=== PATIENT | female | born 1945 | race Caucasian/White ===

== ENCOUNTER 2024-08-27 17:50 | Inpatient (IN) | payer OTHER, SELFPAY ==
[2024-08-27] VITALS (11 sets, daily range): BP systolic 103–175; BP diastolic 44–67; BMI 26.4
--- NOTE | 2024-08-27 14:49 | ED.GENMED ---
History of Present Illness
General
Chief Complaint: Breathing Problem
Time Seen by Provider: 08/27/24 14:14
History of Present Illness
History of Present Illness:
78-year-old female with history of hypertension, hyperlipidemia, history of CVA on Plavix presenting to the emergency department for chest pressure and shortness of breath. Patient reports for the past several weeks she has been having some
pressure in her chest and then this morning felt very short of breath. Has been coughing with production of phlegm. Denies known pulmonary history, however does note that eye doctor in the past told her that she may have COPD. Denies fever.
Denies abdominal pain. Denies any radiation of her pain. No shortness of breath with deep inspiration. Denies any lower extremity swelling. Denies additional acute medical complaints
Phy Exam
Physical Exam
Physical Exam:
General: Well-appearing, no clinical signs of dehydration, nontoxic and in no acute distress
HEENT: protecting airway
Neck: appears supple
CV: Normal heart rate, regular rhythm
Resp: No accessory muscle use, no increased work of breathing, lungs clear to auscultation bilaterally
Abd: Soft and non-distended, no tenderness to palpation
Extremities: No deformities, no swelling
Neuro: alert, no focal neurologic deficit
: deferred
Rectal: deferred
Psych: Normal affect
Skin: Intact
Scores
Heart Failure Risk
Heart Failure Risk Score: Not Applicable
Course
Orders/Labs/Results
Orders:
Orders
08/27/24 12:27
ECG [Electrocardiogram (*1)] Urgent
Reason for Study: Chest Pain
08/27/24 12:28
EKG- Treatment ONCE
08/27/24 14:36
Ipratropium/Albuterol Sulfate [Duoneb] 3 ml INH R NOW ONE
CR Chest - 2 Views Urgent
Comment:
Reason For Exam: SOB
08/27/24 14:44
Electrocardiogram (*1) Urgent
Reason for Study: Chest Pain
08/27/24 Dinner
Clear Liquid
At Your Request: Full Participation
Does patient need a safe tray?: No
08/27/24 15:16
Complete Blood Count/With Diff Urgent
Comprehensive Metabolic Panel Urgent
Ferritin Urgent
Comment: ADD ON
Folate Urgent
Comment: ADD ON
Iron Urgent
Comment: ADD ON
Reticulocyte Count Urgent
Comment: ADD ON
Total Iron Binding Urgent
Comment: ADD ON
Troponin I Urgent
Vitamin B12 Urgent
Comment: ADD ON
08/27/24 16:10
* Blood Bank Products Urgent
Blood Bank Products: *Packed RBC Leuko(PRBC's)
Quantity: 1
Transfuse Today: Yes
Reason: Anemia
08/27/24 16:35
Type And Crossmatch [Type+Screen] Urgent
08/27/24 17:00
ABO2 Urgent
BBK Wristband Number:
Associate notified that ABO2 has been ordered: [id number]
Date: 08/27/24
Time: 16:56
Diabetes Nurse ID: [id number]
08/27/24 17:27
Admit/Transfer Patient As Directed
Co-Sign Provider:
Level of Care: Inpatient admission
Assign to:: Medical/Surgical
Physician / Group: hospitalist
Diagnosis: symptomatic anemia
Reason for Hospitalization: blood transfusion--GI work up
Expected length of stay greater than two midnights?: Yes
ELOS- Estimated Length of Stay in days: 4
I certify the patient meets the requirements for IP care: Yes
PRN Pain Medication Management As Directed
May give lesser potent ordered pain med per pt: Yes
preference::
Protocol:: Medication orders for pain may be administered in a
manner that supports deferring to patient preference
when the pt is:
- Requesting an ordered lesser potent pain medication.
Least to most potent pain medications are defined
as: acetaminophen < NSAID < tramadol < opioids
(morphine, oxycodone, hydromorphone).
- Requesting a lesser dose of the same medication IF
ORDERED.
- Requesting a less intrusive route of administration
if both routes are prescribed by the provider (PO <
IV).
08/27/24 17:29
Code Status As Directed
Resuscitation Status: Full Code
08/27/24 17:45
Add On- LAB Routine
Tests Added?: ferritin, iron, TIBC, %sat, retic count, B12, folate
08/27/24 20:07
0.9% Sodium Chloride 1000 ml [Nss] 1,000 ml IV 100 mls/hr
Metoprolol Xl [Toprol Xl] 50 mg PO QPM
Pantoprazole [Protonix IV] 40 mg IV BID
08/27/24 20:07
GASTROINTESTINAL CONSULT Routine
Consulting Provider: Altagracia Viramontes
Was physician already notified: Yes
Activity As Directed
Activity Level: Out of Bed-Early Mobility
INT (Intravenous Needle Therapy) As Directed
Comment: Place 2 IV catheters of the largest bore possible until stable
Pneumatic Compression Sleeves As Directed
Type: Knee high
Vital Signs As Directed
Frequency: Per unit guidelines
DX Deep Vein Thrombosis Video Routine
08/27/24 22:00
Trazodone [Desyrel] 200 mg PO HS
08/28/24 06:00
Complete Blood Count/No Diff IN AM
Comprehensive Metabolic Panel IN AM
PTT IN AM
Prothrombin Time IN AM
08/28/24 08:00
Amlodipine [Norvasc] 10 mg PO DAILY
08/28/24 12:00
Tramadol HCl [Ultram] 100 mg PO BID@1200,1800
Abnormal Lab Results
08/27/24 08/27/24
15:16 16:35
RBC 2.57 L 10^6/uL
(4.20-5.40)
Hgb 6.5 L* g/dL
(12.0-16.0)
Hct 21.8 L %
(37.0-47.0)
MCH 25.3 L pg
(27.0-31.0)
MCHC 29.8 L g/dL
(33.0-37.0)
Absolute Neuts (auto) 8.5 H 10^3/uL
(1.4-6.5)
Neutrophils % 79.1 H %
(42.2-75.2)
Lymphocytes % 13.0 L %
(20.5-51.1)
Retic Count 4.8 H %
(0.4-2.8)
Chloride 110 H mmol/L
(98-107)
BUN 20 H mg/dl
(7-17)
Glucose 107 H mg/dl
(70-99)
Iron 21 L ug/dl
(37-170)
% Saturation 5 L %
(20-50)
Ferritin 6.7 L ng/ml
(11.1-264.0)
Total Protein 6.1 L g/dl
(6.3-8.2)
Albumin 3.3 L g/dl
(3.5-5.0)
Folate > 20.0 H ng/ml
(2.76-20)
Crossmatch IS Only See Detail
08/27/24 15:16
08/27/24 15:16
Vital Signs
Initial and Last Documented VS:
Initial Vital Signs
Temp Pulse Resp BP Pulse Ox
98.3 F 76 20 139/53 97
08/27/24 12:21 08/27/24 12:21 08/27/24 12:21 08/27/24 12:21 08/27/24 12:21
Last Documented Vital Signs
Temp Pulse Resp BP Pulse Ox
98.3 F 62 18 154/64 96
08/27/24 23:01 08/27/24 23:01 08/27/24 23:01 08/27/24 23:01 08/27/24 23:01
MDM/Problems Addressed
MDM/Problems Addressed:
78-year-old female with history of hypertension and hyperlipidemia presenting to the emergency department for shortness of breath. Vital signs on arrival are normal.
On exam patient is resting comfortably, no acute respiratory distress. Benign cardiac and pulmonary exam. No increased work of breathing, no focal abnormal lung sounds. Suspect component of bronchitis. Very scant expiratory wheeze. Possible
component of COPD. EKG obtained, nonischemic. No signs of volume overload, without concern for CHF. Will plan for laboratory analysis, chest x-ray imaging will trial DuoNeb to assess improvement for symptoms
16:10 - Patient does report some improvement of her breathing after treatment. Continue to suspect possible bronchitis, however patient's hemoglobin is 6.5. No prior for comparison. Does note that she has had transfusions in the past, however
believes that her baseline is around 9. Does note in the past several months she has noticed blood in her stool, none presently. On rectal exam, brown stool, faintly heme positive. Feel patient warrants admission for symptomatic anemia and
possible GI bleed
16:40 -incident with patient. Admitting physician and I went to evaluate patient. Patient refused to talk to him because she 'could not understand him 'and had expressed dissatisfaction having a 'foreign doctor '. Did confront patient and
explained that in her hospitalization, she will absolutely have to encounter providers of multiple ethnicities patient explained understanding. Additional admitting hospitalist aware of situation, will have a different provider evaluate patient for
admission
*Pulse Oximetry
SaO2: 97
Oxygen Mode of Delivery: Room air
Patient hypoxic: no
*EKG
Interpreted by ED Provider?: Yes
EKG Intrepretation Date: 08/27/24
EKG Intrepretation Time: 14:53
Interpretation: normal
Comparison EKG: no comparison EKG present
Heart Rate: 71
Rate: normal
Rhythm: sinus
[place]: normal axis
Interval: normal interval
QRS Pattern: normal QRS
Ischemia: no ischemia
*Critical Care Note
Total Time (30-74mins, 75-104mins- exclusive of procedures): Not Applicable
ED Attending Note
-
Portions of this chart may have been created with voice recognition software.� Occasional wrong word or��sound alike� substitutions may have occurred due to the inherent limitations of voice recognition software.
Discharge Plan
Departure
Patient Disposition: Admit
Date of Disposition: 08/27/24
Time of Disposition: 16:15
Presentation/result/management discussed w/ accepting MD/DO: Hospitalist
Patient with high blood pressure during this ER visit?: No
Condition: Fair
Discharge Problem:
Symptomatic anemia, Breath shortness
Interventions
Interventions:
*Risk Screen - Suicide Last Done: 08/27/24 20:42
*General Assessment Last Done: 08/27/24 12:21
*Neglect/Abuse Screening Last Done: 08/27/24 14:54
*ED- Fall Risk Assessment Last Done: 08/27/24 14:54
*ED COVID-19 Vaccine History Last Done: 08/27/24 20:42
*Nursing Disposition Last Done: 08/27/24 20:07
ED- Cardiac Assessment Last Done: 08/27/24 14:54
ED- Pulmonary Assessment Last Done: 08/27/24 14:54
Discharge Date and Time
Discharge Date/Time: 08/27/24 20:07
[2024-08-27] MEDS: DUONEB 3 ML INH (15:22)
[2024-08-27 15:35] LABS: Hematocrit 21.8 % (37.0-47.0); Hemoglobin 6.5 g/dL (12.0-16.0); Mean Corp Hgb Conc. 29.8 g/dL (33.0-37.0); Mean Corpuscular Volume 84.8 fL (81.0-99.0); Nucleated Red Blood Cells % 0 %; Platelet Count 368 10^3/uL (130-400); Red Cell Dist. Width 14.4 % (11.5-14.5)
[2024-08-27 15:43] LABS: ALT (SGPT) 14 U/L (0-35); AST (SGOT) 17 U/L (14-36); Albumin 3.3 g/dl (3.5-5.0); Alkaline Phosphatase 98 U/L (38-126); Blood Urea Nitrogen 20 mg/dl (7-17); Calcium 8.9 mg/dl (8.4-10.2); Carbon Dioxide 26 mmol/L (22-30); Chloride 110 mmol/L (98-107); Estimated Creatinine Clearance 54 ml/min; Glucose 107 mg/dl (70-99); Potassium 4.0 mmol/L (3.5-5.1); Sodium 138 mmol/L (135-145); Total Protein 6.1 g/dl (6.3-8.2); eGFR > 60.00
[2024-08-27 15:54] LABS: Troponin I < 0.012 ng/ml
--- NOTE | 2024-08-27 16:40 | EDRN ---
into see the patient. Patient rudely asked the to remove his mask and interrupted him while he was explaining why he was wearing it. removed his mask and introduced himself to the patient and attempted to obtain PMH and
why patient was here today. Patient interrupted and stated 'What are all the doctors foreigners? Do none of them speak [place]? I don't want a foreign doctor taking care of me. I can't understand them.'
--- NOTE | 2024-08-27 17:33 | HPS.HSE ---
Family Physician
-
Family Physician: Jah Castillo
Chief Complaint
-
Short of breath
History of Present Illness
Patient is a 78-year-old female with a past medical history significant for essential hypertension, hypothyroidism, hyperlipidemia among other medical issues who stated that she has been short of breath. This has been ongoing. She denies any chest
pains. She states that she did receive a nebulizer treatment and this has helped a little bit. She stated that they jeff some blood in the emergency department and she was told her hemoglobin was low at 6.8 and that they also found 'blood in the
stool'. Patient says that she has been having black stools but has been on iron therapy. She stopped 6 weeks ago due to constipation. She also states that she is having some nausea and vomiting but no hematemesis. Patient is being admitted.
Medical History
Past Medical History
Past Medical History: Reports Other
Additional Past Medical History:
Essential hypertension
Hyperlipidemia
Hypothyroidism
Gout
Ophthalmologic stroke
Mesenteric stents
Past Surgical History: Reports Other
Additional Past Surgical History:
Ruptured appendix
'18 abdominal surgeries'
Spinal surgery for lipoma removal
Broken left hip status post ORIF
Broken right jaimes with rods
Broken right hip with total hip replacement
Social History
Tobacco: Smoker (3 cigarettes/day)
Alcohol: None
Drug: None
Family History
Family History: Other (Mother at age 48, father at age 72 from complications of a CVA, brother recently with heart and kidney issues)
Allergies / Home Medications
Allergies reflects when Allergies were last updated in [facility].
Home Medications with original date entered in [facility]
Allergy/Medication List:
Allergies
Allergy/AdvReac Type Severity Reaction Status Date / Time
oxybutynin Allergy Unknown Verified 08/27/24 12:21
Penicillins Allergy Unknown Verified 08/27/24 12:21
Home Medications
acetaminophen 500 mg tablet (Tylenol Extra Strength) 500 mg PO DAILYPRN PRN mild pain 08/27/24
allopurinol 300 mg tablet 300 mg PO MOWEFR 08/27/24
amlodipine 10 mg tablet 10 mg PO DAILY 08/27/24
aspirin 81 mg tablet,delayed release 81 mg PO DAILY 08/27/24
atorvastatin 40 mg tablet 40 mg PO QPM 08/27/24
biotin 10,000 mcg capsule 10,000 mcg PO DAILY 08/27/24
cholecalciferol (vitamin D3) 50 mcg (2,000 unit) tablet 50 mcg PO DAILY 08/27/24
clopidogrel 75 mg tablet 75 mg PO DAILY 08/27/24
fluticasone propionate 50 mcg/actuation nasal spray,suspension 1 spray intranasal BID 08/27/24
ipratropium bromide 42 mcg (0.06 %) nasal spray 1 spray intranasal BID 08/27/24
levothyroxine 100 mcg tablet 100 mcg PO DAILY 08/27/24
magnesium oxide 500 mg PO QPM 08/27/24
metoprolol succinate 50 mg tablet,extended release 24 hr 50 mg PO QPM 08/27/24
ramipril 10 mg capsule 10 mg PO DAILY 08/27/24
therapeutic multivitamin 1 tab PO DAILY 08/27/24
tramadol 100 mg tablet 100 mg PO BID@1200,1800 08/27/24
trazodone 100 mg tablet 200 mg PO HS 08/27/24
vitamin B complex 1 tab PO QPM 08/27/24
Review of Systems
-
History Source: Patient
A 12 point ROS was completed and negative except as noted: Yes
Constitutional: Denies Fever or Chills
EENT: Reports No Symptoms
Respiratory: Reports Trouble Breathing
Cardiac: Reports Chest Pain (Pressure)
Abdomen/GI: Reports Nausea, Vomiting, Constipated and Black Stools; Denies Abdominal Pain or Diarrhea
: Reports No Symptoms
Musculoskeletal: Reports No Symptoms
Skin: Reports No Symptoms
Neurological: Reports Dizzy (Lightheaded)
Endocrine: Reports No Symptoms
Hematologic/Lymphatic: Reports No Symptoms
Psych: Reports No Symptoms
Physical Exam
Vital Signs
Vital Signs
Temp Pulse Resp BP Pulse Ox
98.3 F 76 20 139/53 96
08/27/24 12:21 08/27/24 12:21 08/27/24 12:21 08/27/24 12:21 08/27/24 14:54
Physical Exam
General: Well Developed, Well Nourished, No Apparent Distress, Obese and Other (Pale appearing)
HEENT: NormoCephalic, Anicteric and Atraumatic; No [place] Conjunctivae (Pale)
Respiratory: Clear; No Wheezes, Rales, Rhonchi or Crackles
Cardiac: S1/S2 and Regular Rhythm; No Bradycardia or Tachycardia
GI: Soft, Non Tender (Mildly tender left lower quadrant without any guarding or rebound), Non Distended, Normal Bowel Sounds and No Hepatosplenomegaly
Musculoskeletal: No Clubbing, No Cyanosis and No Edema
Skin: Warm and Dry
Neuro: Awake and Alert
Psych: Calm
Laboratory Results
-
08/27/24 15:16
08/27/24 15:16
Laboratory Results
Total Bilirubin 0.4 mg/dl (0.2-1.3) 08/27/24 15:16
AST 17 U/L (14-36) 08/27/24 15:16
ALT 14 U/L (0-35) 08/27/24 15:16
Alkaline Phosphatase 98 U/L (38-126) 08/27/24 15:16
Troponin I < 0.012 ng/ml 08/27/24 15:16
Impression/Plan
-
Patient is a 78-year-old female
Symptomatic anemia--etiologies include upper GI from peptic ulcer disease, duodenal ulcer disease due to her aspirin and Plavix use-- diverticular bleeding less likely as these are black stools --patient's hemoglobin is 6.5 with no old ones to
compare as she has never been here before--ADMIT--consult GI--hold aspirin and clopidogrel--clear liquids with IV fluids--patient has been typed and crossed and will be transfused packed red blood cells--follow hemoglobin--antiemetics--consideration
for imaging of the abdomen with left lower quadrant discomfort--will check iron studies (added on to ED labs)
Essential hypertension--continue amlodipine and metoprolol with holding parameters
Hypothyroidism--hold Synthroid for now
Ophthalmologic stroke--hold aspirin and Plavix
Hyperlipidemia--hold atorvastatin
Allergies--continue fluticasone and ipratropium nasal sprays
Constipation--patient states that she suffers from this although I do not see any bowel regimen other than magnesium oxide on her medication profile--will hold off on starting currently as GI may want to do an endoscopy and/or colonoscopy--should
likely have bowel regimen at home
Gout--hold allopurinol
Insomnia--patient takes trazodone 200 mg at bedtime for sleep--we will continue that with holding parameters
DVT prophylaxis--sequential teds
CODE STATUS--full code
[2024-08-27 18:23] LABS: Reticulocyte Count 4.8 % (0.4-2.8)
--- NOTE | 2024-08-27 18:28 | EDRN ---
Patient is receiving PRBC. Reviewed signs and symptoms of a transfusion reaction. Patient verbalized understanding.
[2024-08-27 18:38] LABS: Iron 21 ug/dl (37-170)
--- NOTE | 2024-08-27 18:40 | EDRN ---
Patient tolerating PRBC. Asymptomatic of a transfusion reaction.
[2024-08-27 18:48] LABS: Total Iron Binding Capacity 393 ug/dl (265-497)
[2024-08-27 19:15] LABS: Ferritin 6.7 ng/ml (11.1-264.0)
[2024-08-27 19:46] LABS: Folate > 20.0 ng/ml (2.76-20); Vitamin B12 508 pg/ml (239-931)
[2024-08-27] MEDS: NSS (PRESERVATIVE FREE) 10 ML IV (20:17)
[2024-08-27] MEDS: NSS 1000 IV (20:17)
[2024-08-27] MEDS: PROTONIX IV 40 MG IV (20:18)
[2024-08-27] MEDS: TOPROL XL 50 MG PO (20:20)
[2024-08-27] MEDS: DESYREL 200 MG PO (20:20)
--- NOTE | 2024-08-27 20:30 | PTCARENOTE ---
Pt. admitted from E.D., AAO x 3, one unit of PRBC's infusing, vs stable, call arenas within reach.
[2024-08-27] MEDS: ULTRAM 100 MG PO (21:25)
[2024-08-28 06:00] VITALS: BMI 25.5
[2024-08-28 07:00] VITALS: BP 156/53
[2024-08-28] MEDS: NSS 1000 IV (07:21)
[2024-08-28] MEDS: NSS (PRESERVATIVE FREE) 10 ML IV ×2 (07:22→22:00)
[2024-08-28] MEDS: NORVASC 10 MG PO (07:22)
[2024-08-28] MEDS: PROTONIX IV 40 MG IV ×2 (07:23→22:00)
[2024-08-28 07:31] LABS: Hematocrit 23.6 % (37.0-47.0); Hemoglobin 7.2 g/dL (12.0-16.0); Mean Corp Hgb Conc. 30.5 g/dL (33.0-37.0); Mean Corpuscular Volume 85.2 fL (81.0-99.0); Platelet Count 323 10^3/uL (130-400); Red Cell Dist. Width 14.1 % (11.5-14.5)
[2024-08-28 07:33] LABS: INR 1.04; PT 13.9 Sec (11.4-14.6)
[2024-08-28 07:34] LABS: APTT 28.8 Sec (23.4-35.0)
[2024-08-28 07:36] LABS: ALT (SGPT) 12 U/L (0-35); AST (SGOT) 16 U/L (14-36); Albumin 2.8 g/dl (3.5-5.0); Alkaline Phosphatase 84 U/L (38-126); Blood Urea Nitrogen 15 mg/dl (7-17); Calcium 8.2 mg/dl (8.4-10.2); Carbon Dioxide 23 mmol/L (22-30); Chloride 114 mmol/L (98-107); Estimated Creatinine Clearance 54 ml/min; Glucose 99 mg/dl (70-99); Potassium 3.7 mmol/L (3.5-5.1); Sodium 139 mmol/L (135-145); Total Protein 5.3 g/dl (6.3-8.2); eGFR > 60.00
--- NOTE | 2024-08-28 08:07 | W.PN.HOSP.TC ---
Addendum entered and electronically signed by Kirti Hebert MD 08/28/24 14:26:
I saw and evaluated the patient independently. I reviewed the resident�s note and agree with findings and plan as documented by Dr. Donovan.
GENERAL: well developed, well nourished, pale appearing female in no apparent distress
HEENT: NC/AT
HEART: regular rate and rhythm, +S1, +S2
LUNGS : clear to auscultation bilaterally but loose sounding cough
ABDOM: soft, nontender, nondistended, + bowel sounds
EXT: no cyanosis, clubbing, or edema
NEUROLOGIC: grossly intact
Symptomatic anemia--etiologies include upper GI from peptic ulcer disease, duodenal ulcer disease, gastritis due to her aspirin and Plavix use-- diverticular bleeding less likely--patient's hemoglobin is 6.5 with no old ones to compare as she has
never been here before-apprec GI--hold aspirin and clopidogrel (need washout)--clear liquids with stopping IV fluids--s/p 1 unit pRBC with bump to 7.2, will transfuse another unit--follow hemoglobin--antiemetics--iron studies consistent with iron
deficiency
Essential hypertension--continue amlodipine and metoprolol with holding parameters
Hypothyroidism--restart Synthroid
Ophthalmologic stroke--hold aspirin and Plavix
Hyperlipidemia--restart atorvastatin
Allergies--continue fluticasone and ipratropium nasal sprays
Constipation--patient states that she suffers from this although I do not see any bowel regimen other than magnesium oxide on her medication profile--will hold off on starting currently as GI may want to do an endoscopy and/or colonoscopy--should
likely have bowel regimen at home
Gout--restart allopurinol
chronic pain--takes tramadol 100 mg BID--will increase dose
Insomnia--patient takes trazodone 200 mg at bedtime for sleep--we will continue that with holding parameters
DVT prophylaxis--sequential teds
CODE STATUS--full code
Original Note:
Today's Communication/Plan
-
Ordered another unit of pRBCs, will continue to monitor CBC
Assessment / Plan
Assessment / Plan
Assessment
This is a 78 y/o female with pmhx of hypertension, hyperlipidemia, history of CVA on Plavix who presented to the ED on 08/27/2024 with shortness of breath that began that same morning, alongside nausea and vomiting who was found to have a hemoglobin
of 6.5 in the ED.
Plan
Symptomatic Anemia
-Initial ED values: Hemoglobin 6.5 (L), Hematocrit 21.8 (L), Iron 21 (L), TIBC 393 (N), % Sat 5 (L), Ferritin 6.7 (L), MCV 84.8 (N)
-H&H status post transfusion 1 unit pRBCs : Hemoglobin 7.2 (L), Hematocrit 23.6 (L)
-DD: Upper GI bleed (Patient on aspirin and Plavix at home), Diverticular bleed (Less likely due to blackened stools)
-Consulted GI.
-Ordered 1 unit pRBCs for transfusion today, which will bring total to 2 units.
-HOLD Aspirin and Plavix
-Continue clear fluids diet and IV fluid
-Will continue to monitor CBC
Essential Hypertension
-Continue home meds (Amlodipine and metoprolol) with hold parameters
Hypothyroidism
-Restarted home medication (Synthroid)
Opthalmologic Stroke
-HOLD Aspirin and Plavix
Hyperlipidemia
-Restarted home medication (atorvastatin)
Allergic Rhinitis
-Continue Fluticasone and Opratropium ?Nasal Sprays
Constipation
-Continue home medication (Magnesium Oxide)
-Will consider bowel regime after GI sees her in the event they wish to do an endoscopy and/or colonoscopy
-Patient should be discharged on a bowel regimen
Gout
-Restarted home medication (allopurinol)
Chronic Back Pain
-INCREASED Tramadol to 100mg TID
Insomnia
-Continue home medication (trazodone) with hold parameters
Anticipated Discharge: 24 - 48 hours
Subjective/Interval History
-
Date of Service: August 28, 2024
Patient was doing well when I arrived. She had some questions about her medications and why some of them were not given to her this morning. I spoke with her about the possibility of her anemia being related to a GI bleed. She reports resolution in
her shortness of breath, chest pain and nausea. She does state she is coughing with production clear, slightly greenish phlegm which she says happens when she doesn�t take fluticasone and ipratropium. She denies being diagnosed with allergies,
COPD, Asthma. She does report chronic back pain as well, and states that the tramadol dosage she takes at home is not adequately controlling her pain.
Objective Data
-
Labs:
Laboratory Results
08/28/24
07:02
WBC 8.0
Hgb 7.2 L
Hct 23.6 L
Plt Count 323
PT 13.9
INR 1.04
APTT 28.8
Sodium 139
Potassium 3.7
Chloride 114 H
Carbon Dioxide 23
BUN 15
Creatinine 0.8
Glucose 99
Calcium 8.2 L
Total Bilirubin 0.4
AST 16
ALT 12
Alkaline Phosphatase 84
Vital Signs:
Vital Signs
Temp Pulse Resp BP Pulse Ox
98.3 F 62 18 154/64 96
08/27/24 23:01 08/27/24 23:01 08/27/24 23:01 08/27/24 23:01 08/27/24 23:01
I&O
08/27/24 08/28/24 08/29/24
06:59 06:59 06:59
Intake Total 250 / 250
Balance 250 / 250
Review of Systems
-
History Source: Patient
Constitutional: Reports No Symptoms
Respiratory: Reports Cough; Denies Trouble Breathing or Wheezing
Cardiac: Reports No Symptoms
Abdomen/GI: Denies Abdominal Pain, Nausea, Vomiting or Diarrhea
Musculoskeletal: Reports Muscle Pain (Back pain, chronic following accident many years ago)
Physical Exam
-
General: Well Developed, Well Nourished, No Apparent Distress and Comfortable
HEENT: Normocephalic and Atraumatic
Respiratory: Clear to Auscultation
Cardiac: Regular Rhythm and S1/S2
Skin: Warm and Dry
Neuro: Awake, Alert and Oriented
Psych: Calm
--- NOTE | 2024-08-28 09:35 | CON.GI ---
Consultation
-
Date/Time Consultation Requested: 08/27/24
Date/Time Consultation Performed: 08/28/24
Requesting Provider: Dr. Hebert
Performing Provider: Dr. Viramontes
Reason for Consultation: Melena, LINDA
Medical History
Chief Complaint / HPI
Chief Complaint: Symptomatic anemia, melena
History of Present Illness:
Marine Mayfield is a 78 y.o. female with past medical history of HTN, HLD, hypothyroidism, Mesenteric ischemia s/p PCI, '18 abdominal surgeries,' chronic iron deficiency anemia, hx opthalmologic stroke admitted with complaints of shortness of breath,
found to have a hemoglobin of 6.5, BUN 20/Cr. 0.8. She is on aspirin and plavix, states she has been on them for years, was never told to stop them. She has never been to [facility] before, typically goes to [facility], but decided to
come here, 'because its closer.' She reports history of LINDA, receiving iron and blood transfusions as an outpatient. Prior EGD/Colonoscopies at [facility] reportedly negative, denies prior VCE. Reports being transferred to [place] in 2022 during a
3 month long hospitalization, treated for mesenteric ischemia with multiple stents. She reports being scheduled for an EGD with Dr. Kim but cancelled it after falling last month at home and losing alot of blood, she never rescheduled it. She
reports being on iron therapy as an outpatient and noticing black stools. She has struggled with constipation due to the iron pills, so stopped taking it about 6 weeks ago. She admits to constipation at baseline, just worse with iron
supplementation. No prior labs in our system to compare.�Denies family history of GI malignancy. Denies regular use of NSAIDs.
Hgb 6.5 --> 7.2 s/p 1 unit of PRBC. Recieving 2nd unit of PRBC now.
Past Medical History
Past Medical History: Other (HTN, HLD, hypothyroidism, Mesenteric ischemia s/p PCI, Iron Deficiency Anemia, Opthalmologic stroke )
Past Surgical History: Other (Ruptured appendix '18 abdominal surgeries,' Spinal surgery for lipoma removal, Broken left hip status post ORIF, Broken right jaimes with rods, Broken right hip with total hip replacement)
Social History
Tobacco: Smoker
Alcohol: None
Drug: None
Family History
Family History: Reviewed & Not Pertinent
Allergies / Home Medications
Allergy/AdvReac Type Severity Reaction Status Date / Time
oxybutynin Allergy Unknown Verified 08/27/24 12:21
Penicillins Allergy Unknown Verified 08/27/24 12:21
�Medication �Instructions �Recorded
acetaminophen 500 mg tablet 500 mg PO DAILYPRN PRN mild pain 08/27/24
(Tylenol Extra Strength)
allopurinol 300 mg tablet 300 mg PO MOWEFR Gout 08/27/24
amlodipine 10 mg tablet 10 mg PO DAILY Blood Pressure 08/27/24
aspirin 81 mg tablet,delayed 81 mg PO DAILY Blood Clot 08/27/24
release Prevention/Tx
atorvastatin 40 mg tablet 40 mg PO QPM High Cholesterol 08/27/24
biotin 10,000 mcg capsule 10,000 mcg PO DAILY Supplement 08/27/24
cholecalciferol (vitamin D3) 50 50 mcg PO DAILY Supplement 08/27/24
mcg (2,000 unit) tablet
clopidogrel 75 mg tablet 75 mg PO DAILY Blood Clot 08/27/24
Prevention/Tx
fluticasone propionate 50 1 spray intranasal BID Allergies 08/27/24
mcg/actuation nasal
spray,suspension
ipratropium bromide 42 mcg (0.06 1 spray intranasal BID Congestion 08/27/24
%) nasal spray
levothyroxine 100 mcg tablet 100 mcg PO DAILY Thyroid 08/27/24
magnesium oxide 500 mg PO QPM Electrolyte Repletion 08/27/24
metoprolol succinate 50 mg 50 mg PO QPM Heart 08/27/24
tablet,extended release 24 hr Disease/Condition
ramipril 10 mg capsule 10 mg PO DAILY Blood Pressure 08/27/24
therapeutic multivitamin 1 tab PO DAILY Supplement 08/27/24
tramadol 100 mg tablet 100 mg PO BID@1200,1800 Pain 08/27/24
trazodone 100 mg tablet 200 mg PO HS Mental Health/Anxiety 08/27/24
vitamin B complex 1 tab PO QPM Supplement 08/27/24
Review of Systems
-
All other systems: A 12 pt ROS was Negative except as stated above in HPI
Vital Signs
Temp Pulse Resp BP Pulse Ox
98.3 F 64 18 156/53 95
08/28/24 07:00 08/28/24 07:00 08/28/24 07:00 08/28/24 07:00 08/28/24 08:00
Physical Exam
Exam
GENERAL: In no acute distress, appears comfortable
ABDOMEN: +BS; soft, non-tender and non-distended; no rebound or guarding
Results
WBC 8.0 10^3/uL (4.8-10.8) 08/28/24 07:02
Hgb 7.2 g/dL (12.0-16.0) L 08/28/24 07:02
Hct 23.6 % (37.0-47.0) L 08/28/24 07:02
MCV 85.2 fL (81.0-99.0) 08/28/24 07:02
Plt Count 323 10^3/uL (130-400) 08/28/24 07:02
Absolute Neuts (auto) 8.5 10^3/uL (1.4-6.5) H 08/27/24 15:16
PT 13.9 Sec (11.4-14.6) 08/28/24 07:02
INR 1.04 08/28/24 07:02
APTT 28.8 Sec (23.4-35.0) 08/28/24 07:02
Sodium 139 mmol/L (135-145) 08/28/24 07:02
Potassium 3.7 mmol/L (3.5-5.1) 08/28/24 07:02
Chloride 114 mmol/L (98-107) H 08/28/24 07:02
Carbon Dioxide 23 mmol/L (22-30) 08/28/24 07:02
BUN 15 mg/dl (7-17) 08/28/24 07:02
Creatinine 0.8 mg/dL (0.6-1.0) 08/28/24 07:02
Calcium 8.2 mg/dl (8.4-10.2) L 08/28/24 07:02
Total Bilirubin 0.4 mg/dl (0.2-1.3) 08/28/24 07:02
AST 16 U/L (14-36) 08/28/24 07:02
ALT 12 U/L (0-35) 08/28/24 07:02
Alkaline Phosphatase 84 U/L (38-126) 08/28/24 07:02
Diagnostic Image Results:
Prior GI Procedures:
EGD:
Colonoscopy:
Assessment / Plan
-
78 y.o. female with past medical history of HTN, HLD, hypothyroidism, Mesenteric ischemia s/p PCI, '18 abdominal surgeries,' chronic iron deficiency anemia, hx opthalmologic stroke admitted with symptomatic anemia and black stool, hemoglobin 6.5.
#Acute blood loss anemia
#Melena�
#Constipation
#History of Mesenteric Ischemia s/p PCI
Unfortunately, patient is new to the [facility] and we have no prior records to review her endoscopic exams for workup of similar presentations with iron deficiency anemia as well as her trend of hemoglobin to know how large of a drop this is
from her baseline. She reports history of chronic LINDA requiring outpatient iron and blood transfusions, reports having an EGD scheduled for last month but cancelling it after she fell and suffered a leg injury. She is on DAPT, plavix held on
admission, last dose was 08/27. Otherwise, she has no complaints and is hemodynamically stable without signs of active/unstable GI bleeding.
Concern for UGIB vs. small bowel vs. right-sided colonic source. Suspect she may have obscure GI bleeding due to her reports of prior EGD/Colonoscopy without identifiable source of anemia, but no small bowel evlaution performed. She received 1 unit
of blood thus far, receiving 2nd unit now. Iron panel c/w LINDA.
A/P:
-hold plavix, okay to continue with ASA
-2 large peripheral gauge IVs
-Trend H&H, transfuse for Hgb <7, getting additional unit of PRBC now
-Will attempt to obtain records from [facility] tomorrow to review. Depending on prior workup/findings/ baseline hemoglobin etc, will determine if she can be discharged home if hemoglobin stable without evidence of active bleeding w/ follow-up w/
her outpatient GI doctor vs. inpatient endoscopic evaluation following plavix washout. Earliest would be able to perform EGD would be thu/.
-okay for clears, depending on hemoglobin trend, can discuss advancing diet
Discussed plan with Dr. Hebert.
Data Reviewed
-
Old Records: Requested
-
-
Thank you for consultation and allowing me to participate in the patient's care. Please call the transplant surgeon GI physician during the after hours with any questions or concerns.
[2024-08-28] MEDS: ULTRAM 100 MG PO ×3 (10:25→21:59)
--- NOTE | 2024-08-28 10:56 | PTCARENOTE ---
' For this pt, I gave her the 100 mg of Tramadol. She stated that, 'This tramadol makes her legs hurt for one hour,' then starts to work. She had asked me to message you which I am. I told her that you both should be rounding soon. ' Brandon texted
this to the resident and Dr. Hebert.
[2024-08-28] MEDS: SYNTHROID PO (13:08)
[2024-08-28 14:25] VITALS: BP 153/55
[2024-08-28 14:43] VITALS: BP 148/59
[2024-08-28 15:00] VITALS: BP 170/69
[2024-08-28 15:35] VITALS: BMI 25.5
[2024-08-28 16:52] VITALS: BP 168/64
[2024-08-28] MEDS: LIPITOR 40 MG PO (17:14)
[2024-08-28] MEDS: TOPROL XL 50 MG PO (17:14)
[2024-08-28] MEDS: DESYREL 200 MG PO (21:59)
[2024-08-28] MEDS: NSS (PRESERVATIVE FREE) IV (22:00)
[2024-08-28 23:26] VITALS: BP 154/24
[2024-08-29 00:12] VITALS: BP 145/58
[2024-08-29] MEDS: SYNTHROID 100 MCG PO (05:55)
[2024-08-29 07:26] LABS: Hematocrit 27.0 % (37.0-47.0); Hemoglobin 8.6 g/dL (12.0-16.0); Mean Corp Hgb Conc. 31.9 g/dL (33.0-37.0); Mean Corpuscular Volume 84.4 fL (81.0-99.0); Platelet Count 314 10^3/uL (130-400); Red Cell Dist. Width 14.0 % (11.5-14.5)
[2024-08-29] MEDS: ULTRAM 100 MG PO ×3 (07:29→22:20)
[2024-08-29] MEDS: NORVASC 10 MG PO (07:29)
[2024-08-29] MEDS: PROTONIX IV 40 MG IV ×2 (07:30→20:13)
[2024-08-29] MEDS: ZYLOPRIM 300 MG PO (07:30)
[2024-08-29] MEDS: NSS (PRESERVATIVE FREE) 10 ML IV ×2 (07:30→20:13)
[2024-08-29 07:52] VITALS: BP 165/63
[2024-08-29 08:03] LABS: Blood Urea Nitrogen 15 mg/dl (7-17); Calcium 8.8 mg/dl (8.4-10.2); Carbon Dioxide 25 mmol/L (22-30); Chloride 114 mmol/L (98-107); Estimated Creatinine Clearance 43 ml/min; Glucose 87 mg/dl (70-99); Potassium 4.0 mmol/L (3.5-5.1); Sodium 139 mmol/L (135-145); eGFR 57.66
--- NOTE | 2024-08-29 10:03 | W.PN.GI.CBS2 ---
Addendum entered and electronically signed by Altagracia Viramontes DO 08/29/24 11:19:
The patient was seen and examined by me independently in collaboration with the nurse practitioner.
Past medical history/social history/medications/allergies/family history reviewed.
Lab data and imaging data reviewed.
Agree with plan as outlined above. Suspect history of obscure GI bleeding, but has never had a small bowel evaluation with VCE (per patient). Unclear baseline hemglobin, but we know she intermittently required blood and iron transfusions as an
outpatient. Hemoglobin stable. She is constipated, which is reassuring, as no evidence of active GI bleeding.
Plan:
-okay for low residue diet
-bowel regimen
-IV iron
-trend H&H
-plavix held
-once medical records received will review to determine if she needs to stay for inpatient eval vs. outpatient f/u with her GI doctor at [facility], Dr. Kim
Original Note:
Today's Communication / Plan
-
Concern for UGIB vs. small bowel vs. right-sided colonic source. Suspect she may have obscure GI bleeding due to her reports of prior EGD/Colonoscopy without identifiable source of anemia, but no small bowel evlaution performed.
s/p 2 units PRBC's given with hbg up to 8.6
cont to trend
add IV iron x 3 doses
she admits to constipation with no stools for 1 week with multiple laxatives at home
for mag citrate will add MOM enema today
will add Miralax BID to start tomorrow
following plavix washout. Earliest would be able to perform EGD would be thu/.
discussed with patient OP testing if hbg stable but pt prefers inpatient testing
I [facility] records [facility] for prior work up
Assessment / Plan
-
78 y.o. female with past medical history of HTN, HLD, hypothyroidism, Mesenteric ischemia s/p PCI, '18 abdominal surgeries,' chronic iron deficiency anemia, hx opthalmologic stroke admitted with symptomatic anemia and black stool, hemoglobin 6.5.
Unfortunately, patient is new to the [place] system and we have no prior records to review her endoscopic exams for workup of similar presentations with iron deficiency anemia as well as her trend of hemoglobin to know how large of a drop this is
from her baseline. She reports history of chronic LINDA requiring outpatient iron and blood transfusions, reports having an EGD scheduled for last month but cancelling it after she fell and suffered a leg injury. She is on DAPT, plavix held on
admission, last dose was 08/27. Otherwise, she has no complaints and is hemodynamically stable without signs of active/unstable GI bleeding.
#Acute on chronic blood loss anemia
#Melena�
#Constipation
#History of Mesenteric Ischemia s/p PCI
PLAN:
Concern for UGIB vs. small bowel vs. right-sided colonic source. Suspect she may have obscure GI bleeding due to her reports of prior EGD/Colonoscopy without identifiable source of anemia, but no small bowel evlaution performed.
s/p 2 units PRBC's given with hbg up to 8.6
cont to trend
add IV iron x 3 doses
she admits to constipation with no stools for 1 week with multiple laxatives at home
for mag citrate will add MOM enema today
will add Miralax BID to start tomorrow
following plavix washout. Earliest would be able to perform EGD would be thu/.
discussed with patient OP testing if hbg stable but pt prefers inpatient testing
I requested records from [facility] for prior work up
Subjective
Subjective
Date of Service: August 29, 2024
on clear diet no stools for 1 weeks
Objective
Data Reviewed
Laboratory Data:
Laboratory Results
08/29/24 07:00
08/29/24 07:00
Laboratory Results
PT 13.9 Sec (11.4-14.6) 08/28/24 07:02
INR 1.04 08/28/24 07:02
APTT 28.8 Sec (23.4-35.0) 08/28/24 07:02
Total Bilirubin 0.4 mg/dl (0.2-1.3) 08/28/24 07:02
AST 16 U/L (14-36) 08/28/24 07:02
ALT 12 U/L (0-35) 08/28/24 07:02
Alkaline Phosphatase 84 U/L (38-126) 08/28/24 07:02
Vital Signs and I&O:
Vital Signs
Temp Pulse Resp BP Pulse Ox
97.7 F 67 17 165/63 95
08/29/24 07:52 08/29/24 07:52 08/29/24 07:52 08/29/24 07:52 08/29/24 07:52
I&O
08/28/24 08/29/24 08/30/24
06:59 06:59 06:59
Intake Total 250 / 250 1929
Balance 250 / 250 1929
Physical Exam
Physical Exam
HEENT: Other (pale appearing)
Cardiology: Normal Sinus Rhythm
Pulmonary: Clear
GI: Soft, Non Distended and Non Tender
Extremities: No Edema
Neuro: Non Focal
[2024-08-29] MEDS: LIDOCAINE 4% PATCH 1 PATCH TOPICAL (10:04)
[2024-08-29] MEDS: DULCOLAX 10 MG RECTAL (10:05)
--- NOTE | 2024-08-29 10:20 | W.PN.HOSP.TC ---
Addendum entered and electronically signed by Maxim Sanchez DO 08/30/24 14:55:
CDI: Opiate use
Original Note:
Today's Communication/Plan
-
Continue CLD
IV PPI twice daily
Trend CBC
Follow-up records from [facility]
Consideration inpatient EGD per GI
Assessment / Plan
Assessment / Plan
#ABLA due to UGIB
#Symptomatic anemia
-Differentials include PUD/duodenal ulcer, gastritis, angiectasia, esophagitis
-Presented with hemoglobin 6.5, recent dark black stool for history; s/p 2 unit PRBC
-Given PPI bolus in the ED and started on IV PPI twice daily, currently on CLD
-Home aspirin and Plavix on hold; denies use of NSAIDs other than aspirin
-No history of cardiac stents, does have mesenteric ischemia with previous stent
-GI following, awaiting records from [facility] to assess baseline hemoglobin
-If EGD needed IP, to be performed 08/31 at earliest due to Plavix washout
-Remains hemodynamically stable, no signs of other active bleeding
Plan
-Continue with IV PPI twice daily
-Trend CBC and transfuse for symptoms or Hgb <7
-Continue to hold aspirin and Plavix for now
-Continue with clear liquid diet
-SCDs for DVT prophylax
-Follow-up records from [facility]
#Primary hypertension
-Home regimen includes amlodipine and metoprolol
-No known history of hypertensive systemic disease
-BP stable on home meds with hold parameters
-Consider uptitrating home meds PRN for normotension
#Hypothyroidism
-Unclear etiology, Home regimen includes 100 mcg levothyroxine daily
-Appears stable, no signs or symptoms of thyroid dysfunction
#Chronic mesenteric ischemia s/p stent
#Dyslipidemia
-Home regimen includes DAPT with clopidogrel and aspirin, as well as high intensity statin
-DAPT currently on hold as above for suspected UGIB
-Continue to monitor for symptoms
#Gout
-Stable on home allopurinol 3 times weekly
#Chronic pain
-Stable on home tramadol twice daily
#Insomnia
-Stable on home trazodone nightly
#H/O ophthalmologic CVA
-No obvious residual deficits; unclear etiology, does have ASCVD history
-Home regimen include high intensity statin, DAPT
Diet: Clear liquid diet
DVT prophylaxis: SCDs
CODE STATUS: Full code
Anticipated Discharge: 24 - 48 hours
Subjective/Interval History
-
Date of Service: August 29, 2024
Seen and examined at the bedside. No acute events reported overnight. AFVSS this morning
Hemoglobin up to 8.6 after blood transfusions. Denies any recurrence of bleeding though has not had bowel movement
Denies chest pain, dyspnea, fevers or chills, abdomen pain, other sources of bleeding
Objective Data
-
Labs:
Laboratory Results
08/29/24
07:00
WBC 7.4
Hgb 8.6 L
Hct 27.0 L
Plt Count 314
Sodium 139
Potassium 4.0
Chloride 114 H
Carbon Dioxide 25
BUN 15
Creatinine 1.0
Glucose 87
Calcium 8.8
Vital Signs:
Vital Signs
Temp Pulse Resp BP Pulse Ox
97.7 F 67 17 165/63 95
08/29/24 07:52 08/29/24 07:52 08/29/24 07:52 08/29/24 07:52 08/29/24 07:52
I&O
08/28/24 08/29/24 08/30/24
06:59 06:59 06:59
Intake Total 250 / 250 1929
Balance 250 / 250 1929
Review of Systems
-
History Source: Patient
All other systems: Reviewed and negative
Physical Exam
-
General: Well Developed, Well Nourished and No Apparent Distress
HEENT: Normocephalic, Atraumatic, Moist Mucous Membranes, Anicteric and PERRLA; Negative Good Dentition
Respiratory: Clear to Auscultation and Non Labored Respirations; Negative Accessory Resp Muscle Use
Cardiac: Regular Rhythm and S1/S2; Negative Murmur, Rub or Gallop
GI: Soft, Nondistended, Normal Bowel Sounds and Tender (Epigastrium, no peritoneal sign)
Musculoskeletal: No Clubbing, No Cyanosis and No Edema
Skin: Warm and Dry; Negative Rash or Jaundice
Neuro: AO x 3, Nonfocal/Grossly Intact and Central Nerve's Intact; Negative Tremors
Psych: Calm
Data Reviewed
-
Labs: Labs Reviewed by me, Discussed with Physician (GI) and Discussed with Patient
Old Records: Requested
--- NOTE | 2024-08-29 13:24 | CM ---
CM reviewed chart, patient seen bedside with granddaughterTessy, initial assessment completed. Patient resides independently in a one level apartment, no steps to enter. Patient has a walker at home, has history with [facility] and SN[facility].
Patient confirms PCP Jah Greco, pharmacy [facility], confirms prescription coverage. Patient denies insecurities at home. Consult received for Advance Directive, provided to patient. GI following. CM will continue to follow for all discharge
planning needs.
Plan; likely home no needs
[2024-08-29] MEDS: FERRLECIT 110 MG IV (14:00)
[2024-08-29 15:04] VITALS: BP 170/63
[2024-08-29] MEDS: CITROMA PO (16:07)
--- NOTE | 2024-08-29 16:09 | PTCARENOTE ---
Addendum entered by Rosemary Rosen RN 08/29/24 16:52:
08/29- After further education and discussion with GI, Patient agrees to 'sip on' the Citroma. Educated on Citroma and importance of finishing it. She states she will, 'at my leisure.' Patient accepted Citroma as ordered.
Original Note:
08/29- Patient is refusing any bowel regimen meds at this time including her ordered Citroma, suppository or Enema. She states she wants to have dinner and have it stay in. Educated patient on constipation, GI health and Digestion, but patient still
refuses despite verbalizing understanding. She states, 'nothing besides an enema works.' Advised the Citroma is a very effective medication for constipation, that it is used for colonoscopy prep, and it is different from other constipation
medications she may have been used to. She verbalized understanding but still refuses it and still refuses the enema at this time. Abd still soft, NT, but round and distended. +Hypoactive BSX4. VSS. Continue to monitor.
[2024-08-29] MEDS: LIPITOR 40 MG PO (16:26)
[2024-08-29] MEDS: TOPROL XL 50 MG PO (16:26)
[2024-08-29] MEDS: CITROMA 300 ML PO (16:50)
[2024-08-29] MEDS: MIRALAX PO (21:12)
[2024-08-29] MEDS: REMOVE LIDOCAINE PATCH 1 PATCH REMOVE (21:12)
[2024-08-29] MEDS: DESYREL 200 MG PO (22:21)
[2024-08-29 23:41] VITALS: BP 174/61
[2024-08-30] MEDS: SYNTHROID 100 MCG PO (05:38)
--- NOTE | 2024-08-30 07:14 | W.PN.HOSP.TC ---
Today's Communication/Plan
-
Patient currently hemodynamically stable
Assessment / Plan
Assessment / Plan
Assessment:
This is a 78 y/o female with pmhx of hypertension, hyperlipidemia, history of DVTs x12 and Mesenteric Ischemia s/p stent on Plavix who presented to the ED on 08/27/2024 with shortness of breath that began that same morning, alongside nausea and
vomiting who was found to have a hemoglobin of 6.5 in the ED. She has been transfused with 2 units pRBCs and is now hemodynamically stable without signs of active GI bleed.
Plan:
Symptomatic Anemia
-Initial ED values: Hemoglobin 6.5 (L), Hematocrit 21.8 (L), Iron 21 (L), TIBC 393 (N), % Sat 5 (L), Ferritin 6.7 (L), MCV 84.8 (N)
-H&H status post transfusion first unit pRBCs : Hemoglobin 7.2 (L), Hematocrit 23.6 (L)
-H&H status post transfusion second unit pRBCs: Hemoglobin 8.6 (L), Hematocrit 27.0 (L)
-DD: Upper GI bleed (Patient on aspirin and Plavix), Diverticular bleed (Less likely due to blackened stools),
-GI is following, pending records from her prior admissions to other hospitals
-HOLD Aspirin and Plavix
-Continue IV PPI twice daily
-Continue clear fluids diet and IV fluid
-Trend CBC, transfuse for symptoms or if Hgb <7
-Patient remains hemodynamically stable with no current signs of active bleed
Essential Hypertension
-Continue home meds (Amlodipine and metoprolol) with hold parameters
Hypothyroidism
-Continue home meds (Synthroid)
Ophthalmologic Stroke/Chronic mesenteric ischemia s/p stent
-HOLD Aspirin and Plavix
Hyperlipidemia
-Continue home meds (statin)
Allergic Rhinitis
-Continue home meds (Fluticasone and Opratropium Nasal Sprays). These medications are not currently on formulary at this hospital, but there is no need to hold them if patient wishes to bring them in herself
Constipation
-Continue home medication (Magnesium Oxide)
-Will consider bowel regime after patient's need for endoscopy and/or colonoscopy has been determined
-Patient should be discharged on a bowel regimen
Gout
-Continue home meds (allopurinol)
Insomnia
-Continue home medication (trazodone) with hold parameters
Anticipated Discharge: 24 - 48 hours
Subjective/Interval History
-
Date of Service: August 30, 2024
Patient was well today when I arrived. She continued to have concerns about her nasal sprays and the feeling of chest congestion accompanied by cough and production of thick, white-green sputum. She reports she did not receive nebulizer treatment
yesterday. She also reports she has tried inhalers in the past including fluticasone and that they did not work as effectively as her nasal sprays. She was very reluctant to bring her nasal sprays in from home, as previously medications she had
given to hospital pharmacies had not been returned to her. This meant she had to pay for new medications out of pocket, as her insurance did not cover the lost medication.
She is otherwise doing well, without shortness of breath or chest pain. We spoke at length about her history of GI bleeds while on anticoagulants, and she informed me that prior to taking clopidogrel she was on Eliquis, but was switched to
clopidogrel after she suffered a lower GI bleed with bloody diarrhea in 2022. She did inform me she has had 12 blood clots in her legs during her lifetime.
Objective Data
-
Labs:
Laboratory Results
08/30/24
06:00
WBC Pending
Hgb Pending
Hct Pending
Plt Count Pending
Sodium Pending
Potassium Pending
Chloride Pending
Carbon Dioxide Pending
BUN Pending
Creatinine Pending
Glucose Pending
Calcium Pending
Vital Signs:
Vital Signs
Temp Pulse Resp BP Pulse Ox
97.6 F 55 16 174/61 93
08/29/24 23:41 08/29/24 23:41 08/29/24 23:41 08/29/24 23:41 08/29/24 23:41
I&O
08/29/24 08/30/24 08/31/24
06:59 06:59 06:59
Intake Total 1929 660 / 660
Balance 1929 660 / 660
Review of Systems
-
History Source: Patient
Constitutional: Denies Fever, Fatigue, Chills or Weakness
EENT: Reports Other (Nasal congestion)
Respiratory: Reports Cough (Productive, see HPI); Denies Trouble Breathing or Wheezing
Cardiac: Denies Chest Pain
Abdomen/GI: Reports Constipated (Patient on clear diet, no bowel movement during admission); Denies Abdominal Pain, Nausea, Vomiting or Diarrhea
Neuro: Denies Dizzy, Headache, Weakness, Numbness or Lightheadedness
Physical Exam
-
General: Well Developed, Well Nourished, No Apparent Distress and Comfortable
HEENT: Normocephalic and Atraumatic
Respiratory: Clear to Auscultation
Cardiac: Regular Rhythm and S1/S2
Skin: Warm and Dry
Neuro: Awake, Alert and Oriented
Psych: Calm
[2024-08-30 08:12] VITALS: BP 184/75
[2024-08-30 08:37] LABS: Blood Urea Nitrogen 12 mg/dl (7-17); Calcium 9.1 mg/dl (8.4-10.2); Carbon Dioxide 24 mmol/L (22-30); Chloride 110 mmol/L (98-107); Estimated Creatinine Clearance 43 ml/min; Glucose 93 mg/dl (70-99); Potassium 4.1 mmol/L (3.5-5.1); Sodium 140 mmol/L (135-145); eGFR 57.66
[2024-08-30 09:10] LABS: Hematocrit 33.2 % (37.0-47.0); Hemoglobin 10.3 g/dL (12.0-16.0); Mean Corp Hgb Conc. 31.0 g/dL (33.0-37.0); Mean Corpuscular Volume 85.8 fL (81.0-99.0); Nucleated Red Blood Cells % 0 %; Platelet Count 385 10^3/uL (130-400); Red Cell Dist. Width 14.0 % (11.5-14.5)
[2024-08-30] MEDS: LIDOCAINE 4% PATCH 1 PATCH TOPICAL (09:32)
[2024-08-30] MEDS: MIRALAX 17 GRAMS PO (09:33)
[2024-08-30] MEDS: NSS (PRESERVATIVE FREE) 10 ML IV ×2 (09:33→19:43)
[2024-08-30] MEDS: NORVASC 10 MG PO (09:33)
[2024-08-30] MEDS: PROTONIX IV 40 MG IV ×2 (09:33→19:43)
[2024-08-30] MEDS: ALTACE 10 MG PO (09:40)
[2024-08-30] MEDS: ULTRAM 100 MG PO ×3 (09:40→21:52)
--- NOTE | 2024-08-30 10:39 | W.PN.GI.CBS2 ---
Today's Communication / Plan
-
hemoglobin stable. bowel regimen on d/c. outpatient GI follow-up for egd/colonoscopy. D/c off plavix. GI will sign off, please call with questions
Assessment / Plan
-
Suspect history of obscure GI bleeding, but has never had a small bowel evaluation with [facility] (per patient). Unclear baseline hemoglobin, but we know she intermittently required blood and iron transfusions as an outpatient. Hemoglobin stable, now
above 10, without signs of overt GI bleeding.
Plan:
-given stable hemoglobin, recommend discharge with outpatient f/u with her primary GI doctor, Dr. Kim, will need egd/colonoscopy and likely [facility] for small bowel assessment
-bowel regimen
-IV iron
-trend H&H
-plavix being discontinued, continuing on aspirin only
d/c today with outpatient GI follow-up. D/c on ASA only. GI will sign off, please call with questions.
Subjective
Subjective
Date of Service: August 30, 2024
Patient seen in follow-up. Some records from [facility] reviewed. Hemoglobin >10 this morning without evidence of overt GI bleeding.
Objective
Data Reviewed
Laboratory Data:
Laboratory Results
08/30/24 07:24
08/30/24 07:24
Laboratory Results
PT 13.9 Sec (11.4-14.6) 08/28/24 07:02
INR 1.04 08/28/24 07:02
APTT 28.8 Sec (23.4-35.0) 08/28/24 07:02
Total Bilirubin 0.4 mg/dl (0.2-1.3) 08/28/24 07:02
AST 16 U/L (14-36) 08/28/24 07:02
ALT 12 U/L (0-35) 08/28/24 07:02
Alkaline Phosphatase 84 U/L (38-126) 08/28/24 07:02
Vital Signs and I&O:
Vital Signs
Temp Pulse Resp BP Pulse Ox
98.4 F 57 20 184/75 94
08/30/24 08:12 08/30/24 08:12 08/30/24 08:12 08/30/24 08:12 08/30/24 08:12
I&O
08/29/24 08/30/24 08/31/24
06:59 06:59 06:59
Intake Total 1929 660 / 660
Balance 1929 660 / 660
Physical Exam
Physical Exam
HEENT: Anicteric and Moist mucous membranes
GI: Soft, Non Distended, Non Tender and Normal Bowel Sounds
--- NOTE | 2024-08-30 10:45 | PTCARENOTE ---
Pt offered milk and molasses enema a couple of times this morning. At present, pt is refusing. Pt also refused Miralax as well. Dr. Daniel mike.
[2024-08-30 12:05] VITALS: BP 137/67
[2024-08-30 13:20] VITALS: BP 160/60; BP 174/63; PULSE 65; O2SAT 93
--- NOTE | 2024-08-30 13:23 | PN.CDI ---
CDI
- -
CDI:
Physician Documentation Request
Admit Date: 08/27/24 17:50
Dear Doctor Venus,
Patient admitted with GI bleed.
H&P: 'Home Medications: tramadol 100 mg tablet 100 mg PO BID@1200,1800 08/27/24'
08/29 Hospitalist PN: 'Chronic pain -Stable on home tramadol twice daily'
If possible, please provide further specificity as outlined below:
Opioid dependence
Opioid use
Other
Use of terms such as suspected, likely, concern for, or probable (associated with a specific diagnosis that is being evaluated, monitored, or treated as if it exists) are acceptable and can be coded in the inpatient setting, when documented at the
time of discharge.
Thank you,
Adeline Fink RN, BSN
CDI Specialist
Available via [place] text
Please use your independent medical judgment in providing your response.
[2024-08-30] MEDS: FERRLECIT 110 MG IV (13:32)
[2024-08-30 13:33] VITALS: BP 160/60; BP 174/63; PULSE 65; O2SAT 95
[2024-08-30 15:39] VITALS: BP 165/63
--- NOTE | 2024-08-30 16:44 | W.PN.UPDATE ---
Update Note
Progress Note Update
patient with area of redness/swelling and tenderness in antecubital fossa.
Will start treatment for cellulitis and also obtain US to rule out thrombus.
She just received Tramadol for pain, will order additional Tylenol.
--- NOTE | 2024-08-30 16:48 | PTCARENOTE ---
Called into pt's room. Pt stating she has pain in RT arm near the antecubital space. Area noted to be red, swollen and pt states area is 9.5/[address] Kevin made aware and up to see pt. US of arm and Tylenol ordered to be given.
--- NOTE | 2024-08-30 16:52 | VATNOTE ---
While visiting roommate; overheard pt. talking with dr. bright re. right arm pain in old IV site. This VAT Rn then assessed site and noted large red, tender, 'achy & stabbing' warm to touch, area where IV site from 08/27 had been. Area measured 9cm
wide x 8cm high; area marked. Area approx +3 edema. Pt stated pain level was 9-1/2 & had started just about an hour ago. PCN informed of above and Dr. Bright ordered US and antibiotics. VAT to follow.
[2024-08-30] MEDS: TYLENOL 1000 MG PO (17:02)
[2024-08-30] MEDS: ANCEF 10 IV (17:03)
[2024-08-30] MEDS: LIPITOR 40 MG PO (17:04)
[2024-08-30] MEDS: TOPROL XL 50 MG PO (17:04)
[2024-08-30] MEDS: MIRALAX PO (19:43)
[2024-08-30] MEDS: REMOVE LIDOCAINE PATCH 1 PATCH REMOVE (19:43)
[2024-08-30] MEDS: DESYREL 200 MG PO (21:52)
[2024-08-30 23:39] VITALS: BP 151/57
[2024-08-31] MEDS: ANCEF 5 IV (02:14)
[2024-08-31] MEDS: SYNTHROID 100 MCG PO (06:21)
--- NOTE | 2024-08-31 06:59 | W.PN.HOSP.TC ---
Today's Communication/Plan
-
Discharge today
Assessment / Plan
Assessment / Plan
Assessment:
This is a 78 y/o female with pmhx of hypertension, hyperlipidemia, history of DVTs x12 and Mesenteric Ischemia s/p stent on Plavix who presented to the ED on 08/27/2024 with shortness of breath that began that same morning, alongside nausea and
vomiting who was found to have a hemoglobin of 6.5 in the ED. She has been transfused with 2 units pRBCs and is now hemodynamically stable without signs of active GI bleed.
Plan:
Occlusive Thrombosis
-US of Right arm on 08/30/2024 showed an acute occlusive thrombosis of Right basilic vein in the antecubital fossa
-Encouraged use of heat, elevation of arm, and over the counter pain medications as needed (NOT ibuprofen)
-STOPPED antibiotic
-Ordered diclofenac gel to apply to the area. If patient benefits, will recommend she continue to apply diclofenac following discharge from the hospital.
Symptomatic Anemia
-Initial ED values: Hemoglobin 6.5 (L), Hematocrit 21.8 (L), Iron 21 (L), TIBC 393 (N), % Sat 5 (L), Ferritin 6.7 (L), MCV 84.8 (N)
-H&H status post transfusion first unit pRBCs : Hemoglobin 7.2 (L), Hematocrit 23.6 (L)
-H&H status post transfusion second unit pRBCs: Hemoglobin 8.6 (L), Hematocrit 27.0 (L)
-DD: Upper GI bleed (Patient on aspirin and Plavix), Diverticular bleed (Less likely due to blackened stools),
-GI is following, recommended outpatient follow up
-HOLD Aspirin and Plavix, plan to restart Aspirin only on dishargec
-Patient remains hemodynamically stable with no current signs of active bleed
Essential Hypertension
-Continue home meds (Amlodipine and metoprolol) with hold parameters
Hypothyroidism
-Continue home meds (Synthroid)
Ophthalmologic Stroke/Chronic mesenteric ischemia s/p stent
-HOLD Aspirin and Plavix
Hyperlipidemia
-Continue home meds (statin)
Allergic Rhinitis
-Continue home meds (Fluticasone and Opratropium Nasal Sprays). These medications are not currently on formulary at this hospital, but there is no need to hold them if patient wishes to bring them in herself
Opioid Use/Chronic Pain
-Patient on 100mg tramadol twice daily at home
-Currently receiving 100mg tramadol TID for increased pain
Constipation
-Continue home medication (Magnesium Oxide)
-Will consider bowel regime after patient's need for endoscopy and/or colonoscopy has been determined
-Patient should be discharged on a bowel regimen
Gout
-Continue home meds (allopurinol)
Insomnia
-Continue home medication (trazodone) with hold parameters
Anticipated Discharge: Today
Subjective/Interval History
-
Date of Service: August 31, 2024
Patient is doing well today. We discussed the results of the US of her arm obtained last night. She expressed concern because she had a cousin who had a DVT and from it, and was worried this was what she might have. She did not complain of any
cough today, and denies shortness of breath, dizziness, nausea, vomiting, headache or chest pain. Patient does express new concern about taking care of herself at home as she states she lives alone and anticipates difficulty with preparing and
putting heating pads on her arm.
Objective Data
-
Vital Signs:
Vital Signs
Temp Pulse Resp BP Pulse Ox
98.0 F 53 14 151/57 92
08/30/24 23:39 08/30/24 23:39 08/30/24 23:39 08/30/24 23:39 08/30/24 23:39
I&O
08/29/24 08/30/24 08/31/24
06:59 06:59 06:59
Intake Total 1929 / 1930 660 / 660 1070 / 1070
Balance 1929 660 / 1069
Review of Systems
-
History Source: Patient
Constitutional: Denies Fever, Fatigue, Chills or Weakness
Respiratory: Denies Trouble Breathing
Cardiac: Denies Chest Pain
Abdomen/GI: Reports Constipated; Denies Abdominal Pain, Nausea, Vomiting or Diarrhea
Musculoskeletal: Reports Muscle Pain (Right arm, right shoulder); Denies Muscle Weakness
Skin: Denies Itching
Neuro: Denies Dizzy, Headache, Weakness or Numbness
Physical Exam
-
General: Well Developed, Well Nourished, No Apparent Distress and Comfortable
HEENT: Normocephalic and Atraumatic
Respiratory: Clear to Auscultation
Cardiac: Regular Rhythm and S1/S2
Musculoskeletal: Other (On the right arm near the elbow there is an area of erythema and hardness of the skin overlying the site where an IV catheter had been placed 2 days prior. It is unchanged from yesterday)
Skin: Warm and Dry
Neuro: Awake, Alert and Oriented
Psych: Calm
[2024-08-31 07:51] LABS: Hematocrit 30.7 % (37.0-47.0); Hemoglobin 9.5 g/dL (12.0-16.0); Mean Corp Hgb Conc. 30.9 g/dL (33.0-37.0); Mean Corpuscular Volume 84.3 fL (81.0-99.0); Platelet Count 327 10^3/uL (130-400); Red Cell Dist. Width 13.9 % (11.5-14.5)
[2024-08-31 08:05] VITALS: BP 174/61
[2024-08-31] MEDS: ALTACE 10 MG PO (08:05)
[2024-08-31] MEDS: LIDOCAINE 4% PATCH 1 PATCH TOPICAL (08:05)
[2024-08-31] MEDS: NORVASC 10 MG PO (08:05)
[2024-08-31] MEDS: MIRALAX PO ×3 (08:05→20:50)
[2024-08-31] MEDS: NSS (PRESERVATIVE FREE) 10 ML IV (08:06)
[2024-08-31] MEDS: PROTONIX IV 40 MG IV (08:06)
[2024-08-31] MEDS: ULTRAM 100 MG PO ×3 (08:06→23:26)
[2024-08-31] MEDS: TYLENOL 1000 MG PO (08:06)
[2024-08-31] MEDS: ZYLOPRIM 300 MG PO (08:21)
[2024-08-31] MEDS: ANCEF IV (10:37)
[2024-08-31] MEDS: DICLOFENAC 1% TOPICAL GEL 1 GRAM TOPICAL ×2 (11:04→17:06)
--- NOTE | 2024-08-31 12:08 | PTCARENOTE ---
Pt agreed to have milk and molasses enema today. Pt tolerated it well. Beginning to pass round balls of formed stool.
--- NOTE | 2024-08-31 12:15 | CM ---
referral placed in [facility] for [facility].
Spoke with Mel, patient had [facility] in the past.
fax # for d/c instructions [phone]
--- NOTE | 2024-08-31 12:19 | CM ---
Addendum entered by Domitila De La Rosa 08/31/24 16:34:
Patient given Detailed notice of discharge and stated she wanted CM to add worried about mobility. Patient aware of appeal being processed.
Addendum entered by Domitila De La Rosa 08/31/24 13:19:
Patient updated that the call to [place] needed to occur after physician placed discharge order. Patient stated that she would call again.
Original Note:
Patient seen at bedside in [facility]. Patient completed IMM and called to appeal prior to discharge order being in. CM will update patient that she will need to call again now that the discharge order has been placed. Patient requested referral to [facility] and referral sent by colleague. Patient accepted by [facility]; please fax d/c instructions to [phone]. CM will continue to follow for discharge planning needs.
Plan; home with VN; [facility]
[2024-08-31] MEDS: DICLOFENAC 1% TOPICAL GEL TOPICAL (13:08)
[2024-08-31] MEDS: FERRLECIT 110 MG IV (13:09)
[2024-08-31] MEDS: ASPIR LOW (ENTERIC COATED) 81 MG PO (13:36)
[2024-08-31 16:05] VITALS: BP 152/72
[2024-08-31] MEDS: LIPITOR 40 MG PO (17:06)
[2024-08-31] MEDS: TOPROL XL 50 MG PO (17:06)
[2024-08-31] MEDS: PROTONIX 40 MG PO (20:49)
[2024-08-31] MEDS: REMOVE LIDOCAINE PATCH 1 PATCH REMOVE (20:50)
[2024-08-31] MEDS: NSS (PRESERVATIVE FREE) IV (21:00)
[2024-08-31] MEDS: DESYREL 200 MG PO (23:26)
[2024-08-31] MEDS: DICLOFENAC 1% TOPICAL GEL 100 GRAM TOPICAL (23:28)
[2024-08-31 23:42] VITALS: BP 175/63
[2024-09-01] MEDS: SYNTHROID 100 MCG PO (05:50)
--- NOTE | 2024-09-01 07:04 | W.PN.HOSP.TC ---
Today's Communication/Plan
-
Patient has been stable and ready for discharge since 08/31/2024. Patient now insulting staff.
Assessment / Plan
Assessment / Plan
Assessment:
This is a 78 y/o female with pmhx of hypertension, hyperlipidemia, history of DVTs x12 and Mesenteric Ischemia s/p stent on Plavix who presented to the ED on 08/27/2024 with shortness of breath that began that same morning, alongside nausea and
vomiting who was found to have a hemoglobin of 6.5 in the ED. She has been transfused with 2 units pRBCs and is now hemodynamically stable without signs of active GI bleed.
Plan:
Occlusive Thrombosis
-US of Right arm on 08/30/2024 showed an acute occlusive thrombosis of Right basilic vein in the antecubital fossa
-Encouraged use of heat, elevation of arm, and over the counter pain medications as needed (NOT ibuprofen)
-Ordered diclofenac gel to apply to the area. If patient benefits, will recommend she continue to apply diclofenac following discharge from the hospital.
Symptomatic Anemia
-Initial ED values: Hemoglobin 6.5 (L), Hematocrit 21.8 (L), Iron 21 (L), TIBC 393 (N), % Sat 5 (L), Ferritin 6.7 (L), MCV 84.8 (N)
-H&H status post transfusion first unit pRBCs : Hemoglobin 7.2 (L), Hematocrit 23.6 (L)
-H&H status post transfusion second unit pRBCs: Hemoglobin 8.6 (L), Hematocrit 27.0 (L)
-DD: Upper GI bleed (Patient on aspirin and Plavix), Diverticular bleed (Less likely due to blackened stools),
-GI is following, recommended outpatient follow up
-HOLD Aspirin and Plavix, plan to restart Aspirin only on discharge
-Patient remains hemodynamically stable with no current signs of active bleed
Essential Hypertension
-Continue home meds (Amlodipine and metoprolol) with hold parameters
-Increased Ramipril to 10mg BID
Hypothyroidism
-Continue home meds (Synthroid)
Ophthalmologic Stroke/Chronic mesenteric ischemia s/p stent
-HOLD Aspirin and Plavix
Hyperlipidemia
-Continue home meds (statin)
Allergic Rhinitis
-Continue home meds (Fluticasone and Ipratropium Nasal Sprays). These medications are not currently on formulary at this hospital, but there is no need to hold them if patient wishes to bring them in herself
Opioid Use/Chronic Pain
-Patient on 100mg tramadol twice daily at home
-Currently receiving 100mg tramadol TID for increased pain
Constipation
-Continue home medication (Magnesium Oxide)
-Will consider bowel regime after patient's need for endoscopy and/or colonoscopy has been determined
-Patient should be discharged on a bowel regimen
Gout
-Continue home meds (allopurinol)
Insomnia
-Continue home medication (trazodone) with hold parameters
Anticipated Discharge: Today
Subjective/Interval History
-
Date of Service: September 01, 2024
Patient was doing well when I arrived and initially in good spirits. We discussed her iron deficiency anemia and I informed her that she did not require a transfusion or infusion at this point in time. I encouraged her to follow up outpatient as she
has been hemodynamically stable and ready for discharge since 08/31/2024. She denied any shortness of breath, chest pain, dizziness, headache. She asked about the status of her discharge appeal, and when I informed her I did not have any updates, she
insulted the outpatient case manager assigned to her case. I politely asked her to stop and to not insult the staff members, though she continued to do so another two times, saying that, �You cannot change my mind� and that she is, �a dip�. At this point I
stopped the conversation and left the room.
Objective Data
-
Vital Signs:
Vital Signs
Temp Pulse Resp BP Pulse Ox
97.8 F 59 16 175/63 94
08/31/24 23:42 08/31/24 23:42 08/31/24 23:42 08/31/24 23:42 08/31/24 23:42
I&O
08/31/24 09/01/24 09/02/24
06:59 06:59 06:59
Intake Total 1070 / 1070 110 / 110
Balance 1070 / 1070 110 / 110
Review of Systems
-
History Source: Patient
Constitutional: Denies Fever, Chills or Weakness
Respiratory: Denies Trouble Breathing
Cardiac: Denies Chest Pain
Abdomen/GI: Denies Abdominal Pain, Nausea or Vomiting
Neuro: Denies Dizzy, Headache, Weakness or Numbness
Physical Exam
-
General: Well Developed and Well Nourished
HEENT: Normocephalic and Atraumatic
Respiratory: Clear to Auscultation
Cardiac: Regular Rhythm and S1/S2
Skin: Warm and Dry
Neuro: Awake, Alert and Oriented
Psych: Agitated
[2024-09-01 08:00] VITALS: BP 190/66
[2024-09-01] MEDS: PROTONIX 40 MG PO ×2 (08:20→20:37)
[2024-09-01] MEDS: ALTACE 10 MG PO ×2 (08:20→20:37)
[2024-09-01] MEDS: ULTRAM 100 MG PO ×3 (08:21→22:06)
[2024-09-01] MEDS: ASPIR LOW (ENTERIC COATED) 81 MG PO (08:21)
[2024-09-01] MEDS: NORVASC 10 MG PO (08:22)
[2024-09-01] MEDS: MIRALAX PO ×2 (08:23→20:38)
[2024-09-01] MEDS: LIDOCAINE 4% PATCH 1 PATCH TOPICAL (08:23)
[2024-09-01] MEDS: DICLOFENAC 1% TOPICAL GEL 100 GRAM TOPICAL ×3 (08:24→22:06)
[2024-09-01] MEDS: NSS (PRESERVATIVE FREE) IV (08:25)
[2024-09-01] MEDS: TYLENOL 1000 MG PO (12:13)
--- NOTE | 2024-09-01 14:59 | CM ---
Request received from patient requesting a copy of the information that we had sent to [facility], as was stated on the Detailed Notice of Discharge.
Had patient sign an Authorization to Release Medical Records and provided her with the clinical information that we had sent to [facility] as she had requested.
Made her aware that we had uploaded the documents [facility] had requested to [facility]'s portal and that we may get a determination back later today or tomorrow. They will call her first with their determination and then notify us. She stated she has
her calls blocked so may not get the call. I told her once we are notified by [facility] of their determination a CM will make her aware.
She stated that she has been having this problem with bleeding for 5 years and they have been unable to find the cause, which she want to know the answer to. I made her a referral for [facility] has already been made and they are just waiting
for us to notify them of her discharge. I stated we could request a group social worker visit for her in the home to assist her once she gets home with coordinating her outpt follow-up appointments and any community resources she may need. Update to CM
[2024-09-01 15:27] VITALS: BP 149/56
[2024-09-01] MEDS: DICLOFENAC 1% TOPICAL GEL 2 GRAM TOPICAL (18:06)
[2024-09-01] MEDS: TOPROL XL 50 MG PO (18:08)
[2024-09-01] MEDS: LIPITOR 40 MG PO (18:08)
[2024-09-01] MEDS: ROXICODONE 5 MG PO (18:23)
[2024-09-01] MEDS: REMOVE LIDOCAINE PATCH 1 PATCH REMOVE (20:39)
[2024-09-01] MEDS: DESYREL 200 MG PO (22:05)
[2024-09-01 23:00] VITALS: BP 171/60
[2024-09-02] MEDS: SYNTHROID 100 MCG PO (06:01)
[2024-09-02 07:20] VITALS: BP 188/62
--- NOTE | 2024-09-02 07:23 | W.PN.HOSP.TC ---
Today's Communication/Plan
-
Pending results of discharge appeal.
Assessment / Plan
Assessment / Plan
Assessment:
This is a 78 y/o female with pmhx of hypertension, hyperlipidemia, history of DVTs x12 and Mesenteric Ischemia s/p stent on Plavix who presented to the ED on 08/27/2024 with shortness of breath that began that same morning, alongside nausea and
vomiting who was found to have a hemoglobin of 6.5 in the ED. She has been transfused with 2 units pRBCs and is now hemodynamically stable without signs of active GI bleed.
Plan:
Occlusive Thrombosis
-US of Right arm on 08/30/2024 showed an acute occlusive thrombosis of Right basilic vein in the antecubital fossa
-Encouraged use of heat, elevation of arm, and over the counter pain medications as needed (NOT ibuprofen)
-Continue diclofenac gel to apply to the area. She can continue to apply diclofenac following discharge from the hospital.
Symptomatic Anemia
-Initial ED values: Hemoglobin 6.5 (L), Hematocrit 21.8 (L), Iron 21 (L), TIBC 393 (N), % Sat 5 (L), Ferritin 6.7 (L), MCV 84.8 (N)
-H&H status post transfusion first unit pRBCs : Hemoglobin 7.2 (L), Hematocrit 23.6 (L)
-H&H status post transfusion second unit pRBCs: Hemoglobin 8.6 (L), Hematocrit 27.0 (L)
-DD: Upper GI bleed (Patient on aspirin and Plavix), Diverticular bleed (Less likely due to blackened stools),
-GI recommended outpatient follow up
-HOLD Aspirin and Plavix, plan to restart Aspirin only on discharge
-Patient remains hemodynamically stable with no current signs of active bleed
Essential Hypertension
-Continue home meds (Amlodipine and metoprolol) with hold parameters
-Continue Ramipril to 10mg BID
Hypothyroidism
-Continue home meds (Synthroid)
Ophthalmologic Stroke/Chronic mesenteric ischemia s/p stent
-HOLD Aspirin and Plavix
Hyperlipidemia
-Continue home meds (statin)
Allergic Rhinitis
-Continue home meds (Fluticasone and Ipratropium Nasal Sprays). These medications are not currently on formulary at this hospital, but there is no need to hold them if patient wishes to bring them in herself
Opioid Use/Chronic Pain
-Patient on 100mg tramadol twice daily at home
-Currently receiving 100mg tramadol TID for increased pain
Constipation
-Continue home medication (Magnesium Oxide)
-Patient should be discharged on a bowel regimen
Gout
-Continue home meds (allopurinol)
Insomnia
-Continue home medication (trazodone) with hold parameters
Anticipated Discharge: Today
Subjective/Interval History
-
Date of Service: September 02, 2024
Patient was doing well today when I arrived. There has, at this point, been no update in the appeal of her discharge. She does report some pain this morning in her back, which is chronic for her. She states she takes Trazodone at night to sleep and
slept very well, but when she wakes up her pain is sometimes worsened. We spent some time discussing quality of life and the patient's long-term health goals. She stated she is uninterested in prolonging her life if it means she cannot get up and do
things that she enjoys, and does not wish to remain on a breathing machine or be bedbound for long periods of time. She estimates that she may live well for another 5 years. Aside from pain she denies any acute complaints today.
Objective Data
-
Vital Signs:
Vital Signs
Temp Pulse Resp BP Pulse Ox
98.0 F 58 20 171/60 93
09/01/24 23:00 09/01/24 23:00 09/01/24 23:00 09/01/24 23:00 09/01/24 23:00
I&O
09/01/24 09/02/24 09/03/24
06:59 06:59 06:59
Intake Total 110 / 110 540 / 540
Balance 110 / 110 540 / 540
Review of Systems
-
History Source: Patient
Constitutional: Denies Sleep Disturbance or Weakness
Respiratory: Reports No Symptoms
Cardiac: Reports No Symptoms
Musculoskeletal: Reports Muscle Pain (Back, chronic)
Neuro: Denies Dizzy, Headache, Weakness or Numbness
Psych: Denies Depressed
Physical Exam
-
General: Well Developed, Well Nourished, No Apparent Distress and Comfortable
HEENT: Normocephalic and Atraumatic
Respiratory: Clear to Auscultation
Cardiac: Regular Rhythm and S1/S2
Neuro: Awake, Alert and Oriented
Psych: Calm and Intact Judgement/Insight
[2024-09-02] MEDS: ALTACE 10 MG PO ×2 (08:24→20:17)
[2024-09-02] MEDS: ASPIR LOW (ENTERIC COATED) 81 MG PO (08:25)
[2024-09-02] MEDS: ULTRAM 100 MG PO ×3 (08:25→22:47)
[2024-09-02] MEDS: NORVASC 10 MG PO (08:25)
[2024-09-02] MEDS: PROTONIX 40 MG PO ×2 (08:26→20:17)
[2024-09-02] MEDS: LIDOCAINE 4% PATCH 1 PATCH TOPICAL (08:28)
[2024-09-02] MEDS: DICLOFENAC 1% TOPICAL GEL 2 GRAM TOPICAL ×3 (08:29→17:01)
[2024-09-02] MEDS: MIRALAX 17 GRAMS PO (08:29)
[2024-09-02] MEDS: ZYLOPRIM 300 MG PO (09:03)
--- NOTE | 2024-09-02 14:44 | CM ---
CM reviewed chart, patient seen bedside, with CM Director and orthotic/prosthetic clinician, discussed appeal determination from [facility], patient provided with copy. Patient aware that patient has until tomorrow, 09/03/24 at 12:00 p.m. then will be financially
responsible to remain in hospital. Patient provided with financial responsibility form, copy signed, aware cost is $3,000 a day plus ancillary charges. Patient reports she has reached out to her cousin regarding transportation tomorrow, otherwise
will need transport set up. Update to [facility] on discharge status. CM will continue to follow for all discharge planning needs.
Plan; discharge tomorrow with [facility], may require transport
[facility]
[2024-09-02 15:26] VITALS: BP 136/92
[2024-09-02] MEDS: TOPROL XL 50 MG PO (17:00)
[2024-09-02] MEDS: LIPITOR 40 MG PO (17:00)
[2024-09-02] MEDS: REMOVE LIDOCAINE PATCH 1 PATCH REMOVE (20:06)
[2024-09-02] MEDS: MIRALAX PO (20:29)
[2024-09-02] MEDS: DESYREL 200 MG PO (22:48)
[2024-09-02] MEDS: DICLOFENAC 1% TOPICAL GEL 100 GRAM TOPICAL (22:48)
[2024-09-02 23:00] VITALS: BP 166/65
[2024-09-03] MEDS: SYNTHROID 100 MCG PO (05:11)
[2024-09-03 07:00] VITALS: BP 173/67
[2024-09-03] MEDS: LIDOCAINE 4% PATCH TOPICAL ×2 (08:08→08:14)
[2024-09-03] MEDS: ALTACE 10 MG PO (08:09)
[2024-09-03] MEDS: ASPIR LOW (ENTERIC COATED) 81 MG PO (08:10)
[2024-09-03] MEDS: PROTONIX 40 MG PO (08:10)
[2024-09-03] MEDS: ULTRAM 100 MG PO (08:10)
[2024-09-03] MEDS: NORVASC 10 MG PO (08:10)
[2024-09-03] MEDS: DICLOFENAC 1% TOPICAL GEL 100 GRAM TOPICAL (08:11)
[2024-09-03] MEDS: MIRALAX PO ×2 (08:11→08:14)
--- NOTE | 2024-09-03 10:17 | W.PN.HOSP.TC ---
Today's Communication/Plan
-
plan is for discharge today
Assessment / Plan
Assessment / Plan
Assessment:
This is a 78 y/o female with pmhx of hypertension, hyperlipidemia, history of DVTs x12 and Mesenteric Ischemia s/p stent on Plavix who presented to the ED on 08/27/2024 with shortness of breath that began that same morning, alongside nausea and
vomiting who was found to have a hemoglobin of 6.5 in the ED. She has been transfused with 2 units pRBCs and is now hemodynamically stable without signs of active GI bleed.
Plan:
Occlusive Thrombosis
-US of Right arm on 08/30/2024 showed an acute occlusive thrombosis of Right basilic vein in the antecubital fossa
-Encouraged use of heat, elevation of arm, and over the counter pain medications as needed (NOT ibuprofen)
-Continue diclofenac gel to apply to the area. She can continue to apply diclofenac following discharge from the hospital.
Symptomatic Anemia
-Initial ED values: Hemoglobin 6.5 (L), Hematocrit 21.8 (L), Iron 21 (L), TIBC 393 (N), % Sat 5 (L), Ferritin 6.7 (L), MCV 84.8 (N)
-H&H status post transfusion first unit pRBCs : Hemoglobin 7.2 (L), Hematocrit 23.6 (L)
-H&H status post transfusion second unit pRBCs: Hemoglobin 8.6 (L), Hematocrit 27.0 (L)
-DD: Upper GI bleed (Patient on aspirin and Plavix), Diverticular bleed (Less likely due to blackened stools),
-GI recommended outpatient follow up
-Aspirin restarted without Plavix on discharge
-Patient remains hemodynamically stable with no current signs of active bleed
Essential Hypertension
-Continue home meds (Amlodipine and metoprolol) with hold parameters
-Continue Ramipril to 10mg BID
Hypothyroidism
-Continue home meds (Synthroid)
Ophthalmologic Stroke/Chronic mesenteric ischemia s/p stent
-aspirin resumed on discharge
Hyperlipidemia
-Continue home meds (statin)
Allergic Rhinitis
-Continue home meds (Fluticasone and Ipratropium Nasal Sprays). These medications are not currently on formulary at this hospital, but there is no need to hold them if patient wishes to bring them in herself
Opioid Use/Chronic Pain
-Patient on 100mg tramadol twice daily at home
-Currently receiving 100mg tramadol TID for increased pain
Constipation
-Continue home medication (Magnesium Oxide)
-Patient should be discharged on a bowel regimen
Gout
-Continue home meds (allopurinol)
Insomnia
-Continue home medication (trazodone) with hold parameters
Anticipated Discharge: Today
Subjective/Interval History
-
Date of Service: September 03, 2024
no black or bloody stools
no abdominal pain
she feels constipated but refuses miralax
Objective Data
-
Vital Signs:
Vital Signs
Temp Pulse Resp BP Pulse Ox
98.2 F 65 18 173/67 92
09/03/24 07:00 09/03/24 08:09 09/03/24 07:00 09/03/24 08:09 09/03/24 07:00
I&O
09/02/24 09/03/24 09/04/24
06:59 06:59 06:59
Intake Total 540 / 540 1200 / 1200
Balance 540 / 540 1200 / 1200
Review of Systems
-
History Source: Patient
All other systems: Reviewed and negative
Physical Exam
-
General: Well Developed, Well Nourished, No Apparent Distress and Comfortable
HEENT: Normocephalic and Atraumatic
Respiratory: Clear to Auscultation
Cardiac: Regular Rhythm and S1/S2
Neuro: Awake, Alert and Oriented
Psych: Calm and Intact Judgement/Insight
Data Reviewed
-
Diagnostic Radiology: Report Reviewed by me
Labs: Labs Reviewed by me
[2024-09-03] MEDS: TYLENOL 1000 MG PO (10:34)
--- NOTE | 2024-09-03 11:44 | CM ---
CM reviewed chart, patient seen bedside, offered private caregiver list, patient declining. Patient reports cousin will transport home around 11:30 a.m. Patient discharge home with Rayo TELLEZ. CM will continue to follow for all discharge
planning needs.
Plan; home with Rayo TELLEZ
Rayo Espinoza
--- NOTE | 2024-09-03 12:54 | W.DCSUMMARY ---
Discharge Summary
Discharge Data
Date of Admission: 08/27/24
Date of Discharge: 09/03/24
-
Pending Results: No
Hospital Course
Discharging Physician : Dr. Ashley Kevin
Disposition : Home
Primary care physician : Dr. Jah Greco; GI Physician is Dr. Nba Kim
Principal Discharge diagnosis : Acute on chronic anemia, Iron Deficiency Anemia
Hospital Course :
Ms. Marine Mayfield is a 79 yo woman with hx essential HTN, hypothyroidism, HLD, mesenteric ischemia status post stent placement with hx multiple prior abdominal surgeries, chronic iron deficiency anemia, ophthalmologic stroke presents to the ER with
shortness of breath. She was found to be anemic with Hg 6.5. Patient was given a RBC transfusion and admitted to medicine with GI consulting.
Iron studies showed iron deficiency anemia. Patient reported history of endoscopic exams in past for similar presentation. Per GI note 'Suspect she may have obscure GI bleeding due to her reports of prior EGD/Colonoscopy without identifiable
source of anemia, but no small bowel evaluation performed.'
Patient received a total of 2 units PRBC with appropriate rise in Hg. She was constipated and there was no evidence of an active GI bleed. Given stability of hemoglobin, it was recommended per GI for patient to be discharged and follow up with her
outpatient primary GI physician to discuss repeat EGD/[place] and likely VCE for small bowel assessment. Her Plavix was held in-house and we recommend it continue to be held on discharge given risk of further blood loss. She is continued on aspirin.
She will follow up closely with outpatient providers to discuss the discontinuation of Plavix.
Hospital course complicated by superficial phlebitis right antecubital fossa treated with heat packs.
Patient initially appealed discharge which was declined.
Time spent on discharge was 31 minutes.
Important imaging findings :
Peripheral UE US
IMPRESSION:
ACUTE OCCLUSIVE THROMBOSIS of the RIGHT BASILIC VEIN in the antecubital fossa.
Procedure findings :
Discharge Plan
-
Patient Disposition: Home (Routine Discharge)
Discharge Diagnosis/Procedures: Symptomatic Anemia, Essential Hypertension, Hypothyroidism, History of Ophthalmologic Stroke, Hyperlipidemia, Allergies, Constipation, Gout, Chronic Back Pain, Insomnia, Opioid Use, Thrombosis of the Right Basilic
Vein
Condition: Fair
Diet: Low Sodium and No added salt
Activity: No restrictions
Driving Restrictions: As prior to admission
Bathing Restrictions: None
Blood Work: CBC in 5-7 days, results sent to your PCP and GI doctor
Other Services: VN
Referrals:
Jah Greco MD [Family Provider, Internal Medicine] - in less than 1 week
Additional Discharge Medication Instructions: You should ask your primary care physician about alternative formulations for iron including patches when you meet with them in less than 1 week following discharge.
Plavix is stopped given concern for slow GI Bleed exacerbated by Plavix use. Please follow up with Dr. Kim for outpatient endoscopy/colonoscopy. He may also consider a video capsule study to assess the small intestine.
You are started on Protonix daily
Prescriptions:
New
pantoprazole [Protonix] 40 mg tablet,delayed release (DR/EC)
40 mg PO DAILY Qty: 60 0RF
Continued
atorvastatin 40 mg Tablet
40 mg PO QPM
metoprolol succinate 50 mg Tablet Extended Release 24 Hr
50 mg PO QPM
therapeutic multivitamin Tablet
1 tab PO DAILY
aspirin 81 mg Tablet,Delayed Release (Dr/Ec)
81 mg PO DAILY
acetaminophen [Tylenol Extra Strength] 500 mg Tablet
500 mg PO DAILYPRN PRN (Reason: mild pain)
levothyroxine 100 mcg Tablet
100 mcg PO DAILY
trazodone 100 mg Tablet
200 mg PO HS
amlodipine 10 mg Tablet
10 mg PO DAILY
biotin 10,000 mcg Capsule
10,000 mcg PO DAILY
magnesium oxide 500 mg magnesium Tablet
500 mg PO QPM
vitamin B complex Tablet
1 tab PO QPM
allopurinol 300 mg Tablet
300 mg PO MOWEFR
ipratropium bromide 42 mcg (0.06 %) [place],Non-Aerosol
1 spray INTRANASAL BID
fluticasone propionate 50 mcg/actuation [place],Suspension
1 spray INTRANASAL BID
cholecalciferol (vitamin D3) 50 mcg (2,000 unit) Tablet
50 mcg PO DAILY
tramadol 100 mg Tablet
100 mg PO BID@1200,1800
ramipril 10 mg Capsule
10 mg PO DAILY
Patient Comments:
08/27/2024, last filled on 01/14/2024 for a 21-day supply.
Discontinued
clopidogrel 75 mg Tablet
75 mg PO DAILY
Discharge Orders:
Discharge Patient (As Directed); Ordered 08/31/24
Ordered By: Maxim Sanchez
Discharge Date and Time
Discharge Date/Time: 09/03/24 12:00
Print Language: [email or web address]
== END 2024-09-03 12:00 | disposition home health service (06) | DRG 378 ==
LOC: 4 WEST ACU 17:50
PROVIDERS: Internal Medicine; ADMITTING PHYSICIAN Internal Medicine; ATTENDING PHYSICIAN Student in an Organized Health Care Education/Training Program; CONSULT PHYSICIAN Internal Medicine; EMERGENCY PHYSICIAN Student in an Organized Health Care Education/Training Program; FAMILY PHYSICIAN Internal Medicine
PROC: 30233N1 Transfusion of Nonautologous Red Blood Cells into Peripheral Vein, Percutaneous Approach (ICD-10-PCS; 2024-08-27)
DX: K92.2 Gastrointestinal hemorrhage, unspecified (principal); D62 Acute posthemorrhagic anemia; K55.9 Vascular disorder of intestine, unspecified; D68.32 Hemorrhagic disorder due to extrinsic circulating anticoagulants; I82.611 Acute embolism and thrombosis of superficial veins of right upper extremity; I10 Essential (primary) hypertension; E78.00 Pure hypercholesterolemia, unspecified; D50.9 Iron deficiency anemia, unspecified; G47.00 Insomnia, unspecified; K59.00 Constipation, unspecified; G89.29 Other chronic pain; E03.9 Hypothyroidism, unspecified; M10.9 Gout, unspecified; E78.5 Hyperlipidemia, unspecified; J30.9 Allergic rhinitis, unspecified; I25.10 Atherosclerotic heart disease of native coronary artery without angina pectoris; I80.8 Phlebitis and thrombophlebitis of other sites; F17.210 Nicotine dependence, cigarettes, uncomplicated; Z60.2 Problems related to living alone; Z96.641 Presence of right artificial hip joint; Z82.3 Family history of stroke; Z88.0 Allergy status to penicillin; Z88.8 Allergy status to other drugs, medicaments and biological substances; Z86.73 Personal history of transient ischemic attack (TIA), and cerebral infarction without residual deficits; Z79.82 Long term (current) use of aspirin; Z79.02 Long term (current) use of antithrombotics/antiplatelets; Z79.891 Long term (current) use of opiate analgesic; Z79.890 Hormone replacement therapy; Z86.718 Personal history of other venous thrombosis and embolism; Z91.81 History of falling
CPT/HCPCS: 36430; 71046; 80048; 80053; 82607; 82728; 82746; 83540; 83550; 84484; 85025; 85027; 85045; 85610; 85730; 86850; 86900; 86901; 86920; 93005; 93971; 94640; 97116; 97162; 97166; 97535; 99285; J2916; P9016